=== PATIENT | female | born 1990 | race Caucasian/White ===

== ENCOUNTER → 2020-09-29 16:24 | Outpatient (BNVA) | payer MEDICAID, SELFPAY | PROVIDERS: PCP Internal Medicine; Visit Provider Student in an Organized Health Care Education/Training Program | DX: M08.00 Unspecified juvenile rheumatoid arthritis of unspecified site (principal); R21 Rash and other nonspecific skin eruption | CPT/HCPCS: 99212 ==

== ENCOUNTER 2022-05-01 01:21 | Emergency (ER) | payer MEDICAID, SELFPAY ==
[2022-05-01 01:33] VITALS: BP 140/76; PULSE 88; RESP 16; TEMP 37; O2SAT 100; BMI 22.6
--- NOTE | 2022-05-01 02:32 | ED.WOUNDLAC ---
HPI - Wound/Laceration General Chief Complaint: Wound/Laceration Stated Complaint: Fall Time Seen by Provider: 05/01/22 02:32 Source: patient Mode of arrival: EMS Limitations: no limitations History of Present Illness HPI narrative: Patient's history of substance abuse on methadone was sitting on the bed toilet for sleep fell forward hitting the right forearm to metal toilet paper dispenser patient came here with 15 cm laceration left forearm no other injuries no head injury no loss of conscious Related Data Home Medications Medication Instructions Recorded Confirmed bupropion HCl 300 mg 24 hr tablet, 300 mg PO QAM 09/29/20 09/29/20 extended release (Wellbutrin XL) methadone 40 mg soluble tablet 40 mg PO DAILY 09/29/20 09/29/20 olanzapine 5 mg tablet 5 mg PO DAILY 09/29/20 09/29/20 prazosin 2 mg capsule 2 mg PO BEDTIME 09/29/20 09/29/20 quetiapine 50 mg tablet (Seroquel) 50 mg PO DAILY 09/29/20 09/29/20 sertraline 100 mg tablet (Zoloft) 100 mg PO DAILY 09/29/20 09/29/20 trazodone 50 mg tablet 50 mg PO BEDTIME PRN 09/29/20 09/29/20 Previous Rx's Medication Instructions Recorded prednisone 5 mg tablet See Rx Instructions PO DAILY #50 09/29/20 tabs cephalexin 500 mg capsule 500 mg PO QID 10 days #40 caps 05/01/22 doxycycline hyclate 100 mg tablet 100 mg PO BID #20 tabs 05/01/22 Allergies Allergy/AdvReac Type Severity Reaction Status Date / Time wool [WOOL] Allergy Mild RASH Verified 05/01/22 01:38 SEASONAL ALLERGIES Allergy Mild ITCHING Uncoded 03/10/20 16:02 Review of Systems Review of Systems: Yes all other systems are reviewed and are negative PMFSH Past Medical History Medical History Anxiety Depression Hepatitis C Insomnia Juvenile rheumatoid arthritis Opioid dependence PTSD (post-traumatic stress disorder) Rheumatoid arthritis Tobacco abuse Family History Family History Father CVD (cardiovascular disease) Mother Stroke Social History Social History Alcohol intake: never Cigarettes Per Day: 10 Years Smoked: 5 Advance Directives: No Physical Exam Vital Signs: Vital Signs: Last Vital Signs Temp 98.6 F 05/01/22 01:33 Pulse 88 05/01/22 01:33 Resp 16 05/01/22 01:33 BP 140/76 H 05/01/22 01:33 Pulse Ox 100 05/01/22 01:33 O2 Del Method 05/01/22 01:33 BMI result Body Mass Index 22.6 Const: General: cooperative, healthy appearing, comfortable and no acute distress Nutritional Appearance: average body habitus and well nourished Orientation/consciousness: patient oriented x3 HEENT: Head: Yes normocephalic and Yes atraumatic Neck: Neck: Yes normal visual inspection, Yes full ROM and No tender Resp: Effort & Inspection: normal respiratory effort Auscultation: clear to auscultation bilaterally Cardio: Rate: regular rate Rhythm: regular rhythm GI: Inspection: Yes normal to inspection Palpation (GI): Soft to palpation and nontender Auscultation: normal bowel sounds Neuro: General: patient oriented x3 Extrem: Elbow/forearm/wrist images: 1. 15 cm deep laceration neurovascular intact Medications Administered Discontinued Medications Generic Name Dose Route Start Last Admin Trade Name Freq PRN Reason Stop Dose Admin Diphtheria/Tetanus/Acell Pertussis 0.5 ml 05/01/22 02:32 05/01/22 04:00 Diphth,Pertus(Acell),Tet Adult 0.5 Ml Syringe IM 05/01/22 02:33 0.5 ml .ONCE ONE Administration Procedures Laceration Laceration 1: Site: upper extremity Side (If applicable): left Size (cm): 15 Description: linear Depth: simple, single layer Local Anesthetic: lidocaine 1% Amount of anesthesia used (mL): 10 Skin layer closed with: nylon Size (cm): 5-0 Number of sutures: 13 Technique: simple, interrupted Subcutaneous layer closed with: vicryl Size: 5-0 Number of sutures: 3 Technique: simple, interrupted Discharge Plan Discharge Clinical Impression: Laceration Patient Disposition: Home, Self-Care Instructions: Laceration (ED) Additional Instructions: Local care as advised Suture removal in 2 weeks Prescriptions: New cephalexin 500 mg capsule 500 mg PO QID 10 Days Qty: 40 0RF doxycycline hyclate 100 mg tablet 100 mg PO BID Qty: 20 0RF No Action olanzapine 5 mg tablet 5 mg PO DAILY bupropion HCl [Wellbutrin XL] 300 mg tablet extended release 24 hr 300 mg PO QAM quetiapine [Seroquel] 50 mg tablet 50 mg PO DAILY Rx Instructions: 1 1/2 pill daily trazodone 50 mg tablet 50 mg PO BEDTIME PRN sertraline [Zoloft] 100 mg tablet 100 mg PO DAILY prazosin 2 mg capsule 2 mg PO BEDTIME methadone 40 mg tablet,soluble 40 mg PO DAILY Rx Instructions: 66 mg prednisone 5 mg tablet See Rx Instructions PO DAILY Qty: 50 0RF Rx Instructions: 4 tabs x 5 days, 3 tabs x 5 days, 2 tabs x 5 days, 1 tab x 5 days then stop
[2022-05-01] MEDS: Diphth,Pertus(ACell),Tet Adult 0.5 ML SYRINGE IM (04:00)
[2022-05-01] MEDS: cephALEXin 500 MG CAPSULE PO (04:04)
== END 2022-05-01 04:23 | disposition home or self-care (01) ==
PROVIDERS: Emergency Provider Internal Medicine
DX: S51.812A Laceration without foreign body of left forearm, initial encounter (principal); W18.12XA Fall from or off toilet with subsequent striking against object, initial encounter; F11.20 Opioid dependence, uncomplicated; F17.210 Nicotine dependence, cigarettes, uncomplicated; Y93.89 Activity, other specified; Y92.031 Bathroom in apartment as the place of occurrence of the external cause; Y99.9 Unspecified external cause status; Z79.899 Other long term (current) drug therapy
CPT/HCPCS: 12035; 90471; 90715; 99282; 99284

== ENCOUNTER 2022-10-16 09:09 | Emergency (ER) | payer MEDICAID, SELFPAY ==
[2022-10-16 09:37] VITALS: BP 156/77; PULSE 87; RESP 17; TEMP 36.3; O2SAT 98; BMI 22.8
[2022-10-16 10:35] LABS: MANUAL DIFF FLAG NO
[2022-10-16 10:37] LABS: Basophils Absolute Auto 0.1 X10*3/uL (0.0-0.2); Basophils Percent Auto 0.5 % (0-2); Eosinophils Absolute Auto 0.1 X10*3/uL (0.0-0.4); Eosinophils Percent Auto 0.9 % (0-4); Hematocrit 37.2 % (37.0-47.0); Hemoglobin 12.6 g/dl (12.0-16.0); Imm Gran Abs Auto 0.03 X10*3/uL (0.00-0.03); Imm Gran Pct Auto 0.3 % (0.0-0.4); Lymphocytes Absolute Auto 2.5 X10*3/uL (1.2-4.9); Lymphocytes Percent Auto 25.5 % (20-40); Mean Corpuscular HGB Conc 33.9 g/dl (31.0-35.0); Mean Corpuscular Hemoglobin 29.2 pg (27.0-33.0); Mean Corpuscular Volume 86.1 fL (80.0-98.0); Mean Platelet Volume 9.5 fL (9.4-12.3); Monocytes Absolute Auto 0.3 X10*3/uL (0.1-1.2); Monocytes Percent Auto 2.7 % (2-11); Neutrophils Absolute Auto 6.7 x10*3/uL (2.0-8.3); Neutrophils Percent Auto 70.1 % (45-73); Platelet Count 286 X10*3/uL (160-400); Red Blood Count 4.32 X10*6/uL (4.20-5.50); Red Cell Distribution Width 12.9 % (11.0-16.0); White Blood Count 9.6 X10*3/uL (4.8-10.8)
[2022-10-16 10:38] LABS: Appearance Urine Cloudy; Color Urine Dark Yellow; Glucose Urine UA Negative (Negative); Leukocyte Esterase Urine Trace (Negative); Nitrite Urine Negative (Negative); Specific Gravity - Urine 1.025 (1.005-1.025); UMIC TRIGGER UACC YES; UPreg QC Valid YES; Urine Blood Large (3+) (Negative); Urine Ketones Trace mg/dL (Negative); Urine Pregnancy NEGATIVE (NEGATIVE); Urine Protein 30 (1+) mg/dL (Neg-Trace)
[2022-10-16 10:41] LABS: Bacteria Urine None Seen (None Seen); Hyaline Casts Urine 0-2 /LPF (0-2); RBC Urine >20 /HPF (0-2); WBC Urine 0-5 /HPF (0-5)
--- NOTE | 2022-10-16 10:44 | ED_ITS ---
HPI - General Adult General Chief complaint: General Medical Stated complaint: Blood in urine/Blood in vomit Time Seen by Provider: 10/16/22 09:53 Source: patient Mode of arrival: ambulatory History of Present Illness HPI narrative: 31-year-old female with history of IVDA use presents with complaints of an isolated episode of vomiting on Saturday that she states had blood, she then shows a picture on her phone (this appears to be bilious and I do not visualize any worms). Patient denies any further episodes of nausea or vomiting but states she has had some epigastric discomfort but has continued to eat and drink without difficulty and denies any fevers or chills. Related Data Home Medications Medication Instructions Recorded Confirmed bupropion HCl 300 mg 24 hr tablet, 300 mg PO QAM 09/29/20 09/29/20 extended release (Wellbutrin XL) methadone 40 mg soluble tablet 40 mg PO DAILY 09/29/20 09/29/20 olanzapine 5 mg tablet 5 mg PO DAILY 09/29/20 09/29/20 prazosin 2 mg capsule 2 mg PO BEDTIME 09/29/20 09/29/20 quetiapine 50 mg tablet (Seroquel) 50 mg PO DAILY 09/29/20 09/29/20 sertraline 100 mg tablet (Zoloft) 100 mg PO DAILY 09/29/20 09/29/20 trazodone 50 mg tablet 50 mg PO BEDTIME PRN 09/29/20 09/29/20 Previous Rx's Medication Instructions Recorded prednisone 5 mg tablet See Rx Instructions PO DAILY #50 09/29/20 tabs cephalexin 500 mg capsule 500 mg PO QID 10 days #40 caps 05/01/22 doxycycline hyclate 100 mg tablet 100 mg PO BID #20 tabs 05/01/22 omeprazole 20 mg capsule,delayed 20 mg PO DAILY #30 caps 10/16/22 release Allergies Allergy/AdvReac Type Severity Reaction Status Date / Time wool [WOOL] Allergy Mild RASH Verified 05/01/22 01:38 SEASONAL ALLERGIES Allergy Mild ITCHING Uncoded 03/10/20 16:02 Review of Systems Review of Systems: Pertinent positives and negatives as stated in HPI PMFSH Past Medical History Source: nursing notes reviewed Medical History Anxiety Depression Hepatitis C Insomnia Juvenile rheumatoid arthritis Opioid dependence PTSD (post-traumatic stress disorder) Rheumatoid arthritis Tobacco abuse Family History Family History Father CVD (cardiovascular disease) Mother Stroke Social History Social History Alcohol intake: never Cigarettes Per Day: 10 Years Smoked: 5 Advance Directives: No Advance Directives Information Provided: No Physical Exam ED Vital Signs: Vital Signs - 24 hr 10/16/22 09:37 Temperature 97.4 F Pulse Rate 87 Respiratory Rate 17 Blood Pressure 156/77 H Pulse Oximetry 98 Oxygen Delivery Method Room Air BMI result Body Mass Index 22.8 VITAL SIGNS: Reviewed. GENERAL: Well developed, well nourished, in no acute distress. HEAD: Normocephalic/atraumatic EYES: PERRLA, EOMI EARS: Ext canals without abnormality NOSE: Nares patent bilateral OROPHARYNX: no oral lesions noted, posterior pharynx clear NECK: Supple, no adenopathy LUNGS: Normal breath sounds. No adventitious sounds or accessory muscle use. SpO2<98> CARDIOVASCULAR: Regular rate and rhythm without noted murmurs ABDOMEN: Soft, non-tender, non-distended with bowel sounds. MUSCULOSKELETAL: No tenderness, deformities, or effusions noted on gross inspection. EXTREMITIES: No cyanosis, clubbing or edema, stigmata of IVDA use. SKIN: Inspection of the skin reveals no rashes NEUROLOGIC: Alert and oriented x 4. Strength and sensation to light touch were grossly intact x 4. Medications Administered Discontinued Medications Generic Name Dose Route Start Last Admin Trade Name Freq PRN Reason Stop Dose Admin Al Hydroxide/Mg Hydroxide 30 ml 10/16/22 10:46 10/16/22 11:12 Magnesium Hydrox/Alum Hydrox 30 Ml Oral.Susp PO 10/16/22 10:47 30 ml ONCE ONE Administration Lidocaine HCl 10 ml 10/16/22 10:46 10/16/22 11:12 Lidocaine Hcl Viscous 2 % 15 Ml Solution MUCOUS MEM 10/16/22 10:47 10 ml ONCE ONE Administration Sucralfate 1 gm 10/16/22 10:46 10/16/22 11:12 Sucralfate Oral Suspension 1 Gm/10 Ml Oral.Susp PO 10/16/22 10:47 1 gm ONCE ONE Administration Medical Decision Making Medical Decision Making MDM Narrative: 31-year-old female with history and clinical presentation with suspected gastritis in acid reflux with isolated episode of vomiting on Saturday. The vomitus that was captured in patient's photo does not appear to contain any gross blood or evidence of coffee-grounds. In addition, I do not appreciate any worms or worm-like content. - Labs, UA, GI cocktail 1120: Review of all investigations my interpretation is patient has had an episode of gastritis with associated acid reflux and after receiving GI cocktail with Carafate reports feeling much better and is ready to be discharged home. Differential Diagnosis Please see the discussion above Lab Data Please see the discussion above 10/16/22 10:29 10/16/22 10:29 Labs: Lab Results 10/16/22 10/16/22 10/16/22 Range/Units 10:29 10: 10:29 WBC 9.6 (4.8-10.8) X10*3/uL RBC 4.32 (4.20-5.50) X10*6/uL Hgb 12.6 (12.0-16.0) g/dl Hct 37.2 (37.0-47.0) % MCV 86.1 (80.0-98.0) fL MCH 29.2 (27.0-33.0) pg MCHC 33.9 (31.0-35.0) g/dl RDW 12.9 (11.0-16.0) % Plt Count 286 (160-400) X10*3/uL MPV 9.5 (9.4-12.3) fL Immature Gran % (Auto) 0.3 (0.0-0.4) % Neut % (Auto) 70.1 (45-73) % Lymph % (Auto) 25.5 (20-40) % [place] % (Auto) 2.7 (2-11) % Eos % (Auto) 0.9 (0-4) % Baso % (Auto) 0.5 (0-2) % Lymph # (Auto) 2.5 (1.2-4.9) X10*3/uL [place] # (Auto) 0.3 (0.1-1.2) X10*3/uL Eos # (Auto) 0.1 (0.0-0.4) X10*3/uL Baso # (Auto) 0.1 (0.0-0.2) X10*3/uL Abs Immat Gran (auto) 0.03 (0.00-0.03) X10*3/uL Absolute Neuts (auto) 6.7 (2.0-8.3) x10*3/uL Absolute Nucleated RBC 0.000 (0.0-0.012) X10*3/uL Nucleated RBC % (auto) 0.0 (0.0-0.2) /100WBC PT 12.3 (10.0-13.1) SEC INR 1.1 (0.9-1.1) Sodium 142 (135-145) mmol/L Potassium 4.0 (3.3-5.1) mmol/L Chloride 109 H (96-108) mmol/L Carbon Dioxide 23 (22-29) mmol/L Anion Gap 14 (12-20) BUN 6 L (9-16) mg/dL Creatinine 0.77 (0.5-1.4) mg/dL Estim Creat Clear Calc 83.7 Estimated GFR > 60 Random Glucose 105 (60-115) mg/dL Calcium 9.6 (8.4-10.2) mg/dL Total Bilirubin 0.5 (0.0-1.0) mg/dL AST 57 H (5-31) U/L ALT 77 H (0-31) U/L Alkaline Phosphatase 75 (39-117) U/L Total Protein 8.6 H (6.5-8.0) g/dL Albumin 4.6 (3.5-5.0) g/dL Urine Color Urine Appearance Urine pH (5.0-9.0) Ur Specific [place] (1.005-1.025) Urine Protein (Neg-Trace) mg/dL Urine Glucose (UA) (Negative) mg/dL Urine Ketones (Negative) mg/dL Urine Blood (Negative) Urine Nitrite (Negative) Ur Leukocyte Esterase (Negative) Urine RBC (0-2) /HPF Urine WBC (0-5) /HPF Ur Squamous Epith Cells (0-2) /HPF Urine Bacteria (None Seen) Hyaline Casts (0-2) /LPF Urine Test (NEGATIVE) 10/16/22 10/16/22 Range/Units 10:29 10:29 WBC (4.8-10.8) X10*3/uL RBC (4.20-5.50) X10*6/uL Hgb (12.0-16.0) g/dl Hct (37.0-47.0) % MCV (80.0-98.0) fL MCH (27.0-33.0) pg MCHC (31.0-35.0) g/dl RDW (11.0-16.0) % Plt Count (160-400) X10*3/uL MPV (9.4-12.3) fL Immature Gran % (Auto) (0.0-0.4) % Neut % (Auto) (45-73) % Lymph % (Auto) (20-40) % [place] % (Auto) (2-11) % Eos % (Auto) (0-4) % Baso % (Auto) (0-2) % Lymph # (Auto) (1.2-4.9) X10*3/uL [place] # (Auto) (0.1-1.2) X10*3/uL Eos # (Auto) (0.0-0.4) X10*3/uL Baso # (Auto) (0.0-0.2) X10*3/uL Abs Immat Gran (auto) (0.00-0.03) X10*3/uL Absolute Neuts (auto) (2.0-8.3) x10*3/uL Absolute Nucleated RBC (0.0-0.012) X10*3/uL Nucleated RBC % (auto) (0.0-0.2) /100WBC PT (10.0-13.1) SEC INR (0.9-1.1) Sodium (135-145) mmol/L Potassium (3.3-5.1) mmol/L Chloride (96-108) mmol/L Carbon Dioxide (22-29) mmol/L Anion Gap (12-20) BUN (9-16) mg/dL Creatinine (0.5-1.4) mg/dL Estim Creat Clear Calc Estimated GFR Random Glucose (60-115) mg/dL Calcium (8.4-10.2) mg/dL Total Bilirubin (0.0-1.0) mg/dL AST (5-31) U/L ALT (0-31) U/L Alkaline Phosphatase (39-117) U/L Total Protein (6.5-8.0) g/dL Albumin (3.5-5.0) g/dL Urine Color Dark Yellow Urine Appearance Cloudy Urine pH 6.0 (5.0-9.0) Ur Specific [place] 1.025 (1.005-1.025) Urine Protein 30 (1+) H (Neg-Trace) mg/dL Urine Glucose (UA) Negative (Negative) mg/dL Urine Ketones Trace (Negative) mg/dL Urine Blood Large (3+) H (Negative) Urine Nitrite Negative (Negative) Ur Leukocyte Esterase Trace H (Negative) Urine RBC >20 H (0-2) /HPF Urine WBC 0-5 (0-5) /HPF Ur Squamous Epith Cells 6-10 (0-2) /HPF Urine Bacteria None Seen (None Seen) Hyaline Casts 0-2 (0-2) /LPF Urine Test NEGATIVE (NEGATIVE) External Record Review External record reviewed: Outpatient record and Prior outpatient labs Discharge Plan Discharge Clinical Impression: Gastritis, Acid reflux Patient Disposition: Home, Self-Care Instructions: Gastritis (ED), Diet for Stomach Ulcers and Gastritis (ED) Additional Instructions: 1. Resume all home medications as prescribed. 2. I have provided you with a prescription for acid control medication. 3. Please follow-up with primary care provider in the next 1-2 days. Return to the ER for any worsening symptoms. Prescriptions: New omeprazole 20 mg capsule,delayed release(DR/EC) 20 mg PO DAILY Qty: 30 0RF No Action cephalexin 500 mg capsule 500 mg PO QID 10 Days Qty: 40 0RF doxycycline hyclate 100 mg tablet 100 mg PO BID Qty: 20 0RF olanzapine 5 mg tablet 5 mg PO DAILY bupropion HCl [Wellbutrin XL] 300 mg tablet extended release 24 hr 300 mg PO QAM quetiapine [Seroquel] 50 mg tablet 50 mg PO DAILY Rx Instructions: 1 1/2 pill daily trazodone 50 mg tablet 50 mg PO BEDTIME PRN sertraline [Zoloft] 100 mg tablet 100 mg PO DAILY prazosin 2 mg capsule 2 mg PO BEDTIME methadone 40 mg tablet,soluble 40 mg PO DAILY Rx Instructions: 66 mg prednisone 5 mg tablet See Rx Instructions PO DAILY Qty: 50 0RF Rx Instructions: 4 tabs x 5 days, 3 tabs x 5 days, 2 tabs x 5 days, 1 tab x 5 days then stop Referrals: [facility] [Primary Care Provider] -
[2022-10-16 10:48] LABS: INTERNATIONAL NORM RATIO 1.1 (0.9-1.1); Prothrombin Time 12.3 SEC (10.0-13.1)
[2022-10-16 10:53] LABS: Alanine Aminotransferase 77 U/L (0-31); Albumin Level 4.6 g/dL (3.5-5.0); Alkaline Phosphatase 75 U/L (39-117); Anion Gap 14 (12-20); Aspartate Amino Transferase 57 U/L (5-31); Bilirubin Total 0.5 mg/dL (0.0-1.0); Blood Urea Nitrogen 6 mg/dL (9-16); Calcium 9.6 mg/dL (8.4-10.2); Carbon Dioxide 23 mmol/L (22-29); Chloride 109 mmol/L (96-108); Creatinine Clr Calc Pharmacy 83.7; Estimated Glomerular Filt Rate > 60; Glucose Random 105 mg/dL (60-115); Sodium 142 mmol/L (135-145); Total Protein 8.6 g/dL (6.5-8.0)
[2022-10-16] MEDS: Magnesium Hydrox/Alum Hydrox 30 ML ORAL.SUSP PO (11:12)
[2022-10-16] MEDS: Sucralfate Oral Suspension 1 GM/10 ML ORAL.SUSP PO (11:12)
[2022-10-16] MEDS: Lidocaine HCl Viscous 2 % 15 ML SOLUTION 10 ML MUCOUS MEM (11:12)
--- NOTE | 2022-10-16 11:54 | HE.PHANOTE ---
Re: methadone verification last dose of 105 mg given on 10/15/22 @1145 at [facility] verified with Jossy by Jessica Cummings on 10/16 @114
[2022-10-16] MEDS: methADONE HCl 20 MG/2 ML ORAL.CONC 105 MG PO (12:02)
== END 2022-10-16 12:13 | disposition home or self-care (01) ==
PROVIDERS: Physician Assistant Medical; Emergency Provider Student in an Organized Health Care Education/Training Program
DX: K29.70 Gastritis, unspecified, without bleeding (principal); K21.9 Gastro-esophageal reflux disease without esophagitis; R10.13 Epigastric pain; F11.20 Opioid dependence, uncomplicated; Z79.899 Other long term (current) drug therapy
CPT/HCPCS: 36415; 80053; 81001; 81025; 85025; 85610; 99282; 99283